=== PATIENT | male | born 1965 | race Caucasian/White ===

== ENCOUNTER 2019-09-27 08:36 | Emergency (ER) | payer OTHER ==
[~2019-09-27] VITALS: Ht 193 cm; Wt 110.2 kg
--- OUTSIDE RECORDS SUMMARY | ~2019-09-27 | XMS | Encounter Summary ---
Demographics + + + | Address | [address] | | | [place] [address] | + + + | Home Phone | | + + + | Preferred Language | Unknown | + + + | Marital Status | Single | + + + | Muslim Affiliation | Unknown | + + + | Race | White | + + + | Ethnic Group | Not or | + + + Author + + + | Author | [facility] | + + + | Organization | [facility] | + + + | Address | Unknown | + + + | Phone | Unavailable | + + + Support + + + + + | Name | Relationship | Address | Phone | + + + + + | Dee Price | ECON | [place] | | + + + + + Care Team Providers + +------+ + | Care Seismograph Operator Name | Role | Phone | + +------+ + PCP | Unavailable | + +------+ + Encounter Details +--------+ + + + + | Date | Type | Department | Care Team | Description | +--------+ + + + + | 04/21/ | Office | UNKNOWN DEPARTMENT | Note, Outpatient | Progress Note | | 1994 | Visit-Trans | [address] [facility] | Clinic | | | | pravin | [address] | | | | | | [place], [place] | | | | | | [address] | | | +--------+ + + + + Social History + +-------+ +--------+------+ | Tobacco Use | Types | Packs/Day | Years | Date | | | | | Used | | + +-------+ +--------+------+ | Never Assessed | | | | | + +-------+ +--------+------+ + + + | Sex Assigned at | Date Recorded | | | | + + + | Not on file | | + + + + + + + | Job Start Date | Occupation | Industry | + + + + | Not on file | Not on file | Not on file | + + + + + + + + | Travel History | Travel Start | Travel End | + + + + + + | No recent travel history available. | + + documented as of this encounter Progress Notes Interface, Pest Control Applicator In - 03/17/2007 3:10 AM PDT CLINIC DATE: 04/21/95 UROLOGY - CYSTOSCOPY CLINIC Mr. Patrick is a 29 year old man who presents for evaluation of gross hematuria. His IVP showed medullary sponge kidneys, but no current stones, no obstruction, or evidence of tumor, with small post void residual. He has had no urinary tract infections and currently his urine is without white or red cells, and is not heme positive on dipstick. On cystoscopy today his anterior urethra is within normal limits. Prostatic urethra is 2 cm in length and nonobstructive. The bladder neck is normal. Ureteral orifices are normal in position and configuration, and have clear efflux bilaterally. The bladder is without tumors, stones, or diverticula. Bladder wash was sent. ASSESSMENT: Gross hematuria. No obvious etiology. Possibly secondary to medullary sponge kidneys. PLAN: Follow up bladder wash. The patient is to return for evaluation, p.r.n. return of gross hematuria. Marlen Obrien M.D. Resident, Urology [facility] Chief, Urologic Oncology Swing Driver, Surgery CAF:aly documented in this encounter Plan of Treatment Not on filedocumented as of this encounter Visit Diagnoses Not on filedocumented in this encounter"
--- OUTSIDE RECORDS SUMMARY | ~2019-09-27 | XMS ---
Demographics + + + | Address | [address] | | | [address] | | | [place] [address] | + + + | Preferred Language | Unknown | + + + | Marital Status | Unknown | + + + | Mandaen Affiliation | Unknown | + + + | Race | Unknown | + + + | Ethnic Group | Unknown | + + + Author + + + | Author | [facility] | + + + | Organization | [facility] | + + + | Address | [address] | | | [place] [address] | + + + | Phone | | + + + Care Team Providers + + + + | Care Outpatient Physical Therapist Name | Role | Phone | + + + + Unavailable | Unavailable | + + + + PROBLEMS +---------+ + + +--------+ + + | Type | Condition | ICD9-CM | [id number] | Onset | Condition | SNOMED | | | | Code | Code | Dates | Status | Code | +---------+ + + +--------+ + + | Problem | Hyperglyce | 790.6 | | | Active | [id number] | | | johan NOS | | | | | | +---------+ + + +--------+ + + | Problem | Nausea | 787.01 | | | Active | [id number] | | | with | | | | | | | | vomiting | | | | | | +---------+ + + +--------+ + + | Problem | Fatigue | 780.79 | | | Active | 29395244 | +---------+ + + +--------+ + + | Problem | Diabetes | | E11.65 | | Active | [id number] | | | mellitus | | | | | | | | type 2, | | | | | | | | uncontroll | | | | | | | | ed | | | | | | +---------+ + + +--------+ + + | Problem | Abscess | | L02.91 | | Active | 721195913 | +---------+ + + +--------+ + + | Problem | Blurred | 368.8 | | | Active | 965880696 | | | vision NOS | | | | | | +---------+ + + +--------+ + + | Problem | Diabetes | 250.00 | | | Active | 15679050 | | | mellitus | | | | | | | | type II | | | | | | +---------+ + + +--------+ + + | Problem | Diabetes | | E11.65 | | Active | 472535119 | | | type 2, | | | | | | | | uncontroll | | | | | | | | ed | | | | | | +---------+ + + +--------+ + + | Problem | DMII WO | 250.02 | | | Active | [id number] | | | CMP | | | | | | | | UNCNTRLD | | | | | | +---------+ + + +--------+ + + ALLERGIES + + + + +---------+ | Substance | Reaction | Event Type | Date | Status | + + + + +---------+ | N.K.D.A. | Unknown | Non Drug | Jun, | Unknown | | | | Allergy | | | + + + + +---------+ SOCIAL HISTORY No smoking Hx information available PLAN OF CARE + +---------+ | Activity | Details | + +---------+ +---+ | | +---+ + + + | Follow Up | 2 - 3 Days Reason:null | + + + VITAL SIGNS + + + + | Height | 75 in | 2017-07-05 | + + + + | Weight | 257 lbs | 2017-07-05 | + + + + | BMI | 32.12 kg/m2 | 2017-07-05 | + + + + | Heart Rate | 80 /min | 2017-07-05 | + + + + | Blood pressure systolic | 124 mm Hg | 2017-07-05 | + + + + | Blood pressure diastolic | 84 mm Hg | 2017-07-05 | + + + + MEDICATIONS + + + + + + + +--------+ | Medicati | Instruct | Dosage | Frequenc | Start | End Date | Duration | Status | | on | ions | | y | Date | | | | + + + + + + + +--------+ | Vitamin | | | | | | | Active | | D | | | | | | | | + + + + + + + +--------+ | Multivit | | | | | | | Active | | rome | | | | | | | | + + + + + + + +--------+ | Vitamin | | | | | | | Active | | A | | | | | | | | + + + + + + + +--------+ | Contour | NA once | as | 24h | 08 Jun, | 7 Sep, | 30 | Active | | Next | daily | directed | | 2016 | 2016 | day(s) | | | Test | | | | | | | | | Strips | | | | | | | | | na | | | | | | | | + + + + + + + +--------+ | Insulin | | as | 24h | 08 Jun, | | 30 | Active | | Syringe | | directed | | 2016 | | day(s) | | | 30G X | | | | | | | | | 16" 1 | | | | | | | | | ML | | | | | | | | + + + + + + + +--------+ | Lantus | Subcutan | as | | Jun, | | 30 | Active | | 100 | eous qd | directed | | 2016 | | day(s) | | | UNIT/ML | in the | | | | | | | | | afternoo | | | | | | | | | n | | | | | | | + + + + + + + +--------+ | Hydrocod | | | | | | | Active | | one-Acet | | | | | | | | | aminophe | | | | | | | | | n | | | | | | | | + + + + + + + +--------+ | Tylenol | Orally | 2 | 6h | | | | Active | | 325 MG | every 6 | tablets | | | | | | | | hrs | as | | | | | | | | | needed | | | | | | + + + + + + + +--------+ RESULTS No Results PROCEDURES + + + + + | Procedure | Date Ordered | Related Diagnosis | Body Site | + + + + + | Est Level IV | Jul 05, 2017 | | | | Extended | | | | + + + + + IMMUNIZATIONS No Known Immunizations
--- OUTSIDE RECORDS SUMMARY | ~2019-09-27 | XMS ---
Demographics + + + | Address | [address] | | | [address] | | | [place] [address] | + + + | Preferred Language | Unknown | + + + | Marital Status | Unknown | + + + | Yazidism Affiliation | Unknown | + + + | Race | Unknown | + + + | Ethnic Group | Unknown | + + + Author + + + | Author | [facility] | + + + | Organization | [facility] | + + + | Address | [address] | | | [place] [address] | + + + | Phone | | + + + Care Team Providers + + + + | Care Rubber Worker Name | Role | Phone | + + + + Unavailable | Unavailable | + + + + PROBLEMS +---------+ + + +--------+ + + | Type | Condition | ICD9-CM | [id number] | Onset | Condition | SNOMED | | | | Code | Code | Dates | Status | Code | +---------+ + + +--------+ + + | Problem | Hyperglyce | 790.6 | | | Active | [id number] | | | johan NOS | | | | | | +---------+ + + +--------+ + + | Problem | Nausea | 787.01 | | | Active | 43114239 | | | with | | | | | | | | vomiting | | | | | | +---------+ + + +--------+ + + | Problem | Fatigue | 780.79 | | | Active | 31365171 | +---------+ + + +--------+ + + | Problem | Diabetes | | E11.65 | | Active | 81791705 | | | mellitus | | | | | | | | type 2, | | | | | | | | uncontroll | | | | | | | | ed | | | | | | +---------+ + + +--------+ + + | Problem | Abscess | | L02.91 | | Active | 812173407 | +---------+ + + +--------+ + + | Problem | Blurred | 368.8 | | | Active | 916715457 | | | vision NOS | | | | | | +---------+ + + +--------+ + + | Problem | Diabetes | 250.00 | | | Active | 78405717 | | | mellitus | | | | | | | | type II | | | | | | +---------+ + + +--------+ + + | Problem | Diabetes | | E11.65 | | Active | 549550725 | | | type 2, | | | | | | | | uncontroll | | | | | | | | ed | | | | | | +---------+ + + +--------+ + + | Problem | DMII WO | 250.02 | | | Active | [id number] | | | CMP | | | | | | | | UNCNTRLD | | | | | | +---------+ + + +--------+ + + ALLERGIES Unknown Allergies SOCIAL HISTORY No smoking Hx information available PLAN OF CARE VITAL SIGNS MEDICATIONS Unknown Medications RESULTS No Results PROCEDURES No Known procedures IMMUNIZATIONS No Known Immunizations"
--- OUTSIDE RECORDS SUMMARY | ~2019-09-27 | XMS | Encounter Summary ---
Demographics + + + | Address | [address] | | | [place] [address] | + + + | Home Phone | | + + + | Preferred Language | Unknown | + + + | Marital Status | Single | + + + | Islam Affiliation | Unknown | + + + | Race | White | + + + | Ethnic Group | Not or | + + + Author + + + | Author | [facility] | + + + | Organization | [facility] | + + + | Address [...] Team Providers + +------+ + | Care Director Of Front Office Name | Role | Phone | + +------+ + PCP | Unavailable | + +------+ + Encounter Details +--------+ + + + + | Date | Type | Department | Care Team | Description | +--------+ + + + + | 04/22/ | Results | LAB CORE [address] | Other, Faculty | | | 1994 | Only | [address] | [phone] | | | | | [place] | | | | | | [address] | | | | | | [phone] | | | +--------+ + + + [...] + + documented as of this encounter Plan of Treatment Not on filedocumented as of this encounter Procedures + +--------+ + + + | Procedure Name | Priori | Date/Time | Associated Diagnosis | Comments | | | ty | | | | + +--------+ + + + | ARCHIVE CYTOLOGY | Routin | 04/22/1995 | | Results for this | | | e | | | procedure are in the | | | | | | results section. | + +--------+ + + + documented in this encounter Results ARCHIVE CYTOLOGY (04/22/1995) + + + + + + | Component | Value | Ref Range | Performed | Pathologist | | | | | At | Signature | + + + + + + | ARCHIVE | SOURCE OF SPECIMEN: SEE | | [facility] | | | CYTOLOGY | RESULTS | | DEPARTMENT | | | | Preliminary | | OF | | | | History:NONGYNECOLOGIC | | PATHOLOGY | | | | CYTOLOGY Body | | | | | | Site: BLADDER | | | | | | Specimen Type: BLADDER | | | | | | WASHING | | | | | | Reason for Procedure: | | | | | | Rule out organisms | | | | | | Rule out inflammatory | | | | | | changes Rule out | | | | | | malignancy | | | | | | xx Rule out | | | | | | metastatic disease | | | | | | Routine Follow-up | | | | | | Not given | | | | | | FINAL CYTOLOGY | | | | | | INTERPRETATION | | | | | | SCANT CELLULARITYFEW | | | | | | ATYPICAL UROTHELIAL | | | | | | CELLS-FAVOR REACTIVE | | | | | | CHANGES | | | | | | Case screened by Bibiana | | | | | | Katt LindsayCase reviewed | | | | | | by Leticia Ugalde M.D. | | | | | | My electronic | | | | | | signature indicates that | | | | | | I have personally | | | | | | reviewed alldiagnostic | | | | | | slides, the gross and/or | | | | | | microscopic portion of | | | | | | thisreport and | | | | | | formulated the final | | | | | | diagnosis. | | | | + + + + + + + + | Specimen | + + | Other | + + + + + + + | Performing | Address | City/State/Zipcode | Phone Number | | Organization | | | | + + + + + | [facility] | [address] | [place] [address] | | | PATHOLOGY | [address] | | | + + + + + documented in this encounter Visit Diagnoses Not on filedocumented in this encounter"
--- OUTSIDE RECORDS SUMMARY | ~2019-09-27 | XMS | Encounter Summary ---
Demographics + + + | Address | [address] | | | [place] [address] | + + + | Home Phone | | + + + | Preferred Language | Unknown | + + + | Marital Status | Single | + + + | Orthodoxy Affiliation | Unknown | + + + | Race | White | + + + | Ethnic Group | Not or | + + + Author + + + | Author | [facility] | + + + | Organization | [facility] | + + + | Address [...] Team Providers + +------+ + | Care Dry Chain Worker Name | Role | Phone | [...] | Only | [address] | [phone] | | | | | [place] | | | | | | [address] | | | | | | [phone] | | | +--------+ + + + [...] | + + + + + | [facility] | [address] | [place] [address] | | | PATHOLOGY | [address] | | | + + + + + documented in this encounter Visit Diagnoses Not on filedocumented in this encounter"
--- OUTSIDE RECORDS SUMMARY | ~2019-09-27 | XMS | Encounter Summary ---
Demographics + + + | Address | [address] | | | [place] [address] | + + + | Home Phone | | + + + | Preferred Language | Unknown | + + + | Marital Status | Single | + + + | Temple Affiliation | Unknown | + + + | Race | White | + + + | Ethnic Group | Not or | + + + Author + + + | Author | [facility] | + + + | Organization | [facility] | + + + | Address [...] Team Providers + +------+ + | Care Rim Roller Operator Name | Role | Phone | + +------+ + PCP | Unavailable | + +------+ + Encounter Details +--------+ + + + + | Date | Type | Department | Care Team | Description | +--------+ + + + + | 04/14/ | Office | UNKNOWN DEPARTMENT | Note, Outpatient | Progress Note | | 1994 | Visit-Trans | [address] [facility] | Clinic | | | | pravin | [address] | | | | | | [place], [place] | | | | | | [address] | | | +--------+ + + + [...] as of this encounter Progress Notes Interface, Quiller Tender In - 03/17/2007 3:10 AM PDT CLINIC DATE: 04/14/95Tuesday [facility] UROLOGY CLINIC: SUBJECTIVE: Mr. Patrick is a 29-year-old white male who presents with complaints of one episode of passing a blood clot when urinating. This occurred approximately one month ago. The patient also reports periodic flank pain which is bilateral and has occurred two to three times a week since this blood clot passed. He occasionally notes some pain in his penis. However, this is not persistent dysuria. PAST MEDICAL HISTORY: He has no history of urinary tract infections, documented stones, or sexually-transmitted diseases. He has had no previous surgery on his urinary tract. He currently also is complaining of some difficulty with sexual functioning in that he is unable to achieve orgasm and occasionally has an ejaculation. His medical history is otherwise noncontributory. He is on no medications. He has had no surgeries. Other than pneumonia as a child, he has been healthy. He had an abscessed tooth in 1991 which resolved uneventfully and a clavicle fracture in 1981. PHYSICAL EXAMINATION: He is a healthy appearing man in no distress. ABDOMEN: Soft, flat, and nontender. He has no organomegaly or masses. There is no tenderness over palpation of his groin or kidneys bilaterally. He has minimal left flank tenderness on deep palpation through his back. GENITALIA: Normal circumcised phallus and no evidence of meatal stenosis. His testes are normal to palpation bilaterally. There is no evidence of epididymal masses. However, there is some fullness bilaterally. RECTAL: Modest size prostate. No masses, no tenderness, or fluctuance. URINALYSIS: Entirely negative. No blood or leukocyte esterase on dip stick. Microscopic examination reveals 0 to 2 white cells per high-power field, no red cells, no bacteria, and no epithelial cells. ASSESSMENT: Gross hematuria one episode now resolved but with persistent flank pain. Need to rule out stone or tumor. Currently, no evidence of infection. PLAN: Intravenous pyelogram and chemistry 7 today. Return to clinic after intravenous pyelogram for flexible cystoscopy next available appointment. Marlen Obrien M.D. Noman Dalton M.D. Resident, Urology Professor, Surgery/Urology CF:rupali documented in this encounter Plan of Treatment Not on filedocumented as of this encounter Visit Diagnoses Not on filedocumented in this encounter"
--- OUTSIDE RECORDS SUMMARY | ~2019-09-27 | XMS | Encounter Summary ---
Demographics + + + | Address | [address] | | | [place] [address] | + + + | Home Phone | | + + + | Preferred Language | Unknown | + + + | Marital Status | Single | + + + | Congregation Affiliation | Unknown | + + + | Race | White | + + + | Ethnic Group | Not or | + + + Author + + + | Author | [facility] | + + + | Organization | [facility] | + + + | Address | Unknown | + + + | Phone | Unavailable | + + + Support + + + + + | Name | Relationship | Address | Phone | + + + + + | Dee Price | ECON | [place] | | + + + + + Care Team Providers + +------+ + | Care Clinical Trials Manager Name | Role | Phone | + +------+ + PCP | Unavailable | + +------+ + Encounter Details +--------+ + + + + | Date | Type | Department | Care Team | Description | +--------+ + + + + | 04/14/ | Results | Registration [id number] | | | | 1994 | Only | [address] | | | | | [address] Mailcode: [address] | | | | | | [place], [place] | | | | | | [address] | | | | | | [phone] | | | +--------+ + + + [...] | + +--------+ + + + | URINALYSIS TESTS | Routin | 04/21/1995 | | Results for this | | | e | 4:34 PM | | procedure are in the | | | | PDT | | results section. | + +--------+ + + + | CHEMISTRY TESTS 4 | Routin | 04/14/1995 | | Results for this | | | e | 10:23 AM | | procedure are in the | | | | PDT | | results section. | + +--------+ + + + documented in this encounter Results URINALYSIS TESTS (04/21/1995 4:34 PM PDT) + + + + + + | Component | Value | Ref Range | Performed | Pathologist | | | | | At | Signature | + + + + + + | TIARRA GUY | ERRONEOUS REQUEST | | | | | ONLY - | | | | | | HEADER | | | | | + + + + + + + + | Specimen | + + | | + + + + + + + | Performing | Address | City/State/Zipcode | Phone Number | | Organization | | | | + + + + + | [facility] | [address] | [place] [address] | | | PATHOLOGY | [address] | | | + + + + + CHEMISTRY TESTS 4 (04/14/1995 10:23 AM PDT) + + + + + + | Component | Value | Ref Range | Performed | Pathologist | | | | | At | Signature | + + + + + + | SODIUM, | 139. | mmol/l | | | | PLASMA | | | | | | (LAB) | | | | | + + + + + + | POTASSIUM, | 3.8 | mmol/l | | | | PLASMA | | | | | | (LAB) | | | | | + + + + + + | CHLORIDE, | 103. | mmol/l | | | | PLASMA | | | | | | (LAB) | | | | | + + + + + + | TOTAL CO2, | 28. | mmol/l | | | | PLASMA | | | | | | (LAB) | | | | | + + + + + + | BUN, PLASMA | 20. | mg/dL | | | | (LAB) | | | | | + + + + + + | CREATININE | 1.1 | mg/dL | | | | PLASMA | | | | | | (LAB) | | | | | + + + + + + | GLUCOSE, | 105. | mg/dL | | | | PLASMA | | | | | | (LAB) | | | | | + + + + + + + + | Specimen | + + | | + + + + + + + | Performing | Address | City/State/Zipcode | Phone Number | | Organization | | | | + + + + + | [facility] | [address] | [place] [address] | | | PATHOLOGY | [address] | | | + + + + + documented in this encounter Visit Diagnoses Not on filedocumented in this encounter"
--- OUTSIDE RECORDS SUMMARY | ~2019-09-27 | XMS | Encounter Summary ---
Demographics + + + | Address | [address] | | | [place] [address] | + + + | Home Phone | | + + + | Preferred Language | Unknown | + + + | Marital Status | Single | + + + | Pentecostal Affiliation | Unknown | + + + | Race | White | + + + | Ethnic Group | Not or | + + + Author + + + | Author | [facility] | + + + | Organization | [facility] | + + + | Address [...] Team Providers + +------+ + | Care Silo Filler Name | Role | Phone | + [...] [address] | | | | | | [place], [place] | | | | | | [address] | | | | | | [phone] | | | +--------+ + + + [...] | + + + + + | [facility] | [address] | [place] [address] | | | PATHOLOGY | [address] [...] | + + + + + | [facility] | [address] | [place] [address] | | | PATHOLOGY | [address] | | | + + + + + documented in this encounter Visit Diagnoses Not on filedocumented in this encounter"
--- OUTSIDE RECORDS SUMMARY | ~2019-09-27 | XMS ---
Demographics + + + | Address | [address] | | | [address] | | | [place] [address] | + + + | Preferred Language | Unknown | + + + | Marital Status | Unknown | + + + | Taoism Affiliation | Unknown | + + + | Race | Unknown | + + + | Ethnic Group | Unknown | + + + Author + + + | Author | [facility] | + + + | Organization | [facility] | + + + | Address | [address] | | | [place] [address] | + + + | Phone | | + + + Care Team Providers + + + + | Care Assistant Manager Name | Role | Phone | + + + + Unavailable | Unavailable | + + + + PROBLEMS +---------+ + + +--------+ + + | Type | Condition | ICD9-CM | [id number] | Onset | Condition | SNOMED | | | | Code | Code | Dates | Status | Code | +---------+ + + +--------+ + + | Problem | Hyperglyce | 790.6 | | | Active | [id number] | | | johan NOS | | | | | | +---------+ + + +--------+ + + | Problem | Nausea | 787.01 | | | Active | 58236294 | | | with | | | | | | | | vomiting | | | | | | +---------+ + + +--------+ + + | Problem | Fatigue | 780.79 | | | Active | 36982029 | +---------+ + + +--------+ + + | Problem | Diabetes | | E11.65 | | Active | 75346431 | | | mellitus | | | | | | | | type 2, | | | | | | | | uncontroll | | | | | | | | ed | | | | | | +---------+ + + +--------+ + + | Problem | Abscess | | L02.91 | | Active | 988172083 | +---------+ + + +--------+ + + | Problem | Blurred | 368.8 | | | Active | 488545001 | | | vision NOS | | | | | | +---------+ + + +--------+ + + | Problem | Diabetes | 250.00 | | | Active | 08892872 | | | mellitus | | | | | | | | type II | | | | | | +---------+ + + +--------+ + + | Problem | Diabetes | | E11.65 | | Active | 206306317 | | | type 2, | | | | | | | | uncontroll | | | | | | | | ed | | | | | | +---------+ + + +--------+ + + | Problem | DMII WO | 250.02 | | | Active | [id number] | | | CMP | | | [...] Follow Up | 2 - 3 Days for wound check Reason:null | + + + | Pending Test | Glucose, Finger Stick (IH) | + + + VITAL SIGNS + + + + | Height | 75 in | 2017-07-03 | + + + + | Weight | 257.4 lbs | 2017-07-03 | + + + + | BMI | 32.17 kg/m2 | 2017-07-03 | + + + + | Temperature | 98.5 degrees Fahrenheit | 2017-07-03 | + + + + | Heart Rate | 87 /min | 2017-07-03 | + + + + | Blood pressure systolic | 137 mm Hg | 2017-07-03 | + + + + | Blood pressure diastolic | 87 mm Hg | 2017-07-03 | + + + + MEDICATIONS + [...] + + + + + +--------+ | Bactrim | Orally | 1 tablet | 12h | May, | 5 Jun, | 10 | Active | | DS | Twice a | | | 2017 | 2017 | day(s) | | | 800-160 | day | | | | | | | | MG | | | | | | | | + + + + + + + +--------+ | Advil | | | | | | | Active | + + + + + + [...] | + + + + + | REAGENT STRIP/BLOOD | Jul 03, 2017 | | | | GLUCOSE | | | | + + + + + | Est Level IV | Jul 03, 2017 | | | | Extended | | | | + + + + + IMMUNIZATIONS No Known Immunizations"
--- OUTSIDE RECORDS SUMMARY | ~2019-09-27 | XMS | Encounter Summary ---
Demographics + + + | Address | [address] | | | [place] [address] | + + + | Home Phone | | + + + | Preferred Language | Unknown | + + + | Marital Status | Single | + + + | Hoahaoism Affiliation | Unknown | + + + | Race | White | + + + | Ethnic Group | Not or | + + + Author + + + | Author | [facility] | + + + | Organization | [facility] | + + + | Address | Unknown | + + + | Phone | Unavailable | + + + Support + + + + + | Name | Relationship | Address | Phone | + + + + + | Dee Price | ECON | [place] | | + + + + + Care Team Providers + +------+ + | Care Hair Spring Cutter Name | Role | Phone | + +------+ + PCP | Unavailable | + +------+ + Encounter Details +--------+ + + + + | Date | Type | Department | Care Team | Description | +--------+ + + + + | 04/21/ | Results | [facility]rology [facility]idents | Noman Dalton MD | | | 1994 | Only | [address] | [address] | | | | | Fatou Zheng Mailcode: | [place], [place] | | | | | [address] | [address] | | | | | [address] | [phone] | | | | | [place], [place] | | | | | | [address] | | | | | | [phone] | | | +--------+ + + + [...] | + +--------+ + + + | IVP, WITH TOMOGRAPHY | Routin | 04/21/1995 | | Results for this | | | e | 11:35 AM | | procedure are in the | | | | PDT | | results section. | + +--------+ + + + documented in this encounter Results IVP, WITH TOMOGRAPHY (04/21/1995 11:35 AM PDT) + + + + + + | Component | Value | Ref Range | Performed | Pathologist | | | | | At | Signature | + + + + + + | IVP, WITH | Radiologist 1: | | | | | TOMOGRAPHY | CARRIE RICHARD, | | | | | | MEve-Radiologist 2: | | | | | | RENÉ HERRERA, | | | | | | MKATHLEEN MALONEY | | | | | | | | | | | | | | | | | | 12-20-24 IVP | | | | | | TOMOGRAPHY: 04/21/95, | | | | | | 1135 HOURS DICTATED: | | | | | | 04/21/95 CLINICAL | | | | | | HISTORY: The patient | | | | | | reports history of gross | | | | | | hematuria onemonth | | | | | | prior to this | | | | | | examination with | | | | | | associated bilateral | | | | | | flank andtesticular | | | | | | pain. The patient is | | | | | | asymptomatic at this | | | | | | time. PROCEDURE: A PAR | | | | | | conference was held | | | | | | with the patient. A | | | | | | 100 cc ofIsovue was | | | | | | infused without | | | | | | complication. Serial | | | | | | tomography and plainfilm | | | | | | images were obtained. | | | | | | Additional | | | | | | fluoroscopic images | | | | | | performed. FINDINGS: | | | | | | Garment Examiner films: The | | | | | | hepatic, renal and psoas | | | | | | shadows | | | | | | areunremarkable. The | | | | | | bowel gas pattern is | | | | | | nonspecific. No | | | | | | osseousabnormalities are | | | | | | identified. No | | | | | | intra-abdominal | | | | | | calcifications | | | | | | areevident. The kidneys | | | | | | are normal in size and | | | | | | configuration. The | | | | | | pyelograms | | | | | | andnephrograms appear | | | | | | symmetrically. All of | | | | | | the distal tubules | | | | | | appearmoderately dilated | | | | | | bilaterally. No | | | | | | compression was used. | | | | | | Noassociated filling | | | | | | defects delineated. The | | | | | | ureters are gracile | | | | | | butotherwise | | | | | | unremarkable. The | | | | | | bladder is normal in | | | | | | configuration. A small | | | | | | postvoid residual | | | | | | isnoted. IMPRESSION: 1. | | | | | | Dilatation of the | | | | | | distal tubules | | | | | | bilaterally as | | | | | | described. 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 No | | | | | | associatedfilling | | | | | | defects identified. | | | | | | Further evaluation with | | | | | | ultrasound ismay be | | | | | | helpful to confirm MSK. | | | | | | END OF IMPRESSION: | | | | + + + + + + + + | Specimen | + + | | + + + +---------+ + + | Performing | Address | City/State/Zipcode | Phone Number | | Organization | | | | + +---------+ + + | [place] [facility] | | | | [facility] | | | | + +---------+ + + documented in this encounter Visit Diagnoses Not on filedocumented in this encounter"
--- OUTSIDE RECORDS SUMMARY | ~2019-09-27 | XMS | Encounter Summary ---
Demographics + + + | Address | [address] | | | [place] [address] | + + + | Home Phone | | + + + | Preferred Language | Unknown | + + + | Marital Status | Single | + + + | Advent Affiliation | Unknown | + + + | Race | White | + + + | Ethnic Group | Not or | + + + Author + + + | Author | [facility] | + + + | Organization | [facility] | + + + | [...] Team Providers + +------+ + | Care Completions Engineer Name | Role | Phone | + +------+ + PCP | Unavailable | + +------+ + Encounter Details +--------+ + + + + | Date | Type | Department | Care Team | Description | +--------+ + + + + | 04/14/ | Office | UNKNOWN DEPARTMENT | Note, Outpatient | Progress Note | | 1994 | Visit-Trans | [address] [facility] | Clinic | | | | pravin | [address] | | | | | | [place], [place] | | | | | | [address] | | | +--------+ + + + [...] as of this encounter Progress Notes Interface, Administrative Professional In - 03/17/2007 3:10 AM PDT CLINIC DATE: 04/14/95[facility]: SUBJECTIVE: Mr. Patrick is a [...]
--- OUTSIDE RECORDS SUMMARY | ~2019-09-27 | XMS ---
Demographics + + + | Address | [address] | | | [address] | | | [place] [address] | + + + | Preferred Language | Unknown | + + + | Marital Status | Unknown | + + + | Christian Affiliation | Unknown | + + + | Race | Unknown | + + + | Ethnic Group | Unknown | + + + Author + + + | Author | [facility] | + + + | Organization | [facility] | + + + | Address | [address] | | | [place] [address] | + + + | Phone | | + + + Care Team Providers + + + + | Care Digital Account Supervisor Name | Role | Phone | + + + + Unavailable | Unavailable | + + + + PROBLEMS +---------+ + + +--------+ + + | Type | Condition | ICD9-CM | [id number] | Onset | Condition | SNOMED | | | | Code | Code | Dates | Status | Code | +---------+ + + +--------+ + + | Problem | Hyperglyce | 790.6 | | | Active | [id number] | | | johan NOS | | | | | | +---------+ + + +--------+ + + | Problem | Nausea | 787.01 | | | Active | 50397714 | | | with | | | | | | | | vomiting | | | | | | +---------+ + + +--------+ + + | Problem | Fatigue | 780.79 | | | Active | 64431857 | +---------+ + + +--------+ + + | Problem | Diabetes | | E11.65 | | Active | 88877296 | | | mellitus | | | | | | | | type 2, | | | | | | | | uncontroll | | | | | | | | ed | | | | | | +---------+ + + +--------+ + + | Problem | Abscess | | L02.91 | | Active | 307411476 | +---------+ + + +--------+ + + | Problem | Blurred | 368.8 | | | Active | 102543637 | | | vision NOS | | | | | | +---------+ + + +--------+ + + | Problem | Diabetes | 250.00 | | | Active | 81890150 | | | mellitus | | | | | | | | type II | | | | | | +---------+ + + +--------+ + + | Problem | Diabetes | | E11.65 | | Active | 794563699 | | | type 2, | | | | | | | | uncontroll | | | | | | | | ed | | | | | | +---------+ + + +--------+ + + | Problem | DMII WO | 250.02 | | | Active | [id number] | | | CMP | | | | | | | | UNCNTRLD | | | | | | +---------+ + + +--------+ + + ALLERGIES Unknown Allergies SOCIAL HISTORY No smoking Hx information available PLAN OF CARE VITAL SIGNS MEDICATIONS Unknown Medications RESULTS No Results PROCEDURES No Known procedures IMMUNIZATIONS No Known Immunizations"
--- OUTSIDE RECORDS SUMMARY | ~2019-09-27 | XMS | Clinical Summary ---
Demographics + + + | Address | [address] | | | [place] [address] | + + + | Home Phone | | + + + | Preferred Language | Unknown | + + + | Marital Status | Single | + + + | Druze Affiliation | Unknown | + + + | Race | White | + + + | Ethnic Group | Not or | + + + Author + + + | Organization | Unknown | + + + | Address | Unknown | + + + | Phone | Unavailable | + + + Support + + + + + | Name | Relationship | Address | Phone | + + + + + | Dee Price | ECON | [place] | | + + + + + Care Team Providers + +------+ + | Care Solar Tech Name | Role | Phone | + +------+ + PCP | Unavailable | + +------+ + Source Comments STANLEY is fully live on both [facility] and [facility] Allergies Not on File Medications Not on file Active Problems Not on file Social History + +-------+ +--------+------+ | Tobacco [...] recent travel history available. | + + Last Filed Vital Signs Not on file Plan of Treatment + + + + + | Health Maintenance | Due Date | Last Done | Comments | + + + + + | Influenza (Flu) | | | | | vaccination (#1) | 9 | | | + + + + + | Pneumococcal | Aged Out | | No longer eligible | | vaccination | | | based on patient's | | | | | age to complete this | | | | | topic | + + + + + Results Not on filefrom Last 3 Months"
--- OUTSIDE RECORDS SUMMARY | ~2019-09-27 | XMS ---
Demographics + + + | Address | [address] | | | [address] | | | [place] [address] | + + + | Preferred Language | Unknown | + + + | Marital Status | Unknown | + + + | Anabaptist Affiliation | Unknown | + + + | Race | Unknown | + + + | Ethnic Group | Unknown | + + + Author + + + | Author | [facility] | + + + | Organization | [facility] | + + + | Address | [address] | | | [place] [address] | + + + | Phone | | + + + Care Team Providers + + + + | Care Family Service Worker Name | Role | Phone | + + + + Unavailable | Unavailable | + + + + PROBLEMS +---------+ + + +--------+ + + | Type | Condition | ICD9-CM | [id number] | Onset | Condition | SNOMED | | | | Code | Code | Dates | Status | Code | +---------+ + + +--------+ + + | Problem | Hyperglyce | 790.6 | | | Active | 82161877 | | | johan NOS | | | | | | +---------+ + + +--------+ + + | Problem | Nausea | 787.01 | | | Active | 07177777 | | | with | | | | | | | | vomiting | | | | | | +---------+ + + +--------+ + + | Problem | Fatigue | 780.79 | | | Active | 48945144 | +---------+ + + +--------+ + + | Problem | Diabetes | | E11.65 | | Active | 19943064 | | | mellitus | | | | | | | | type 2, | | | | | | | | uncontroll | | | | | | | | ed | | | | | | +---------+ + + +--------+ + + | Problem | Abscess | | L02.91 | | Active | 579864056 | +---------+ + + +--------+ + + | Problem | Blurred | 368.8 | | | Active | 264493019 | | | vision NOS | | | | | | +---------+ + + +--------+ + + | Problem | Diabetes | 250.00 | | | Active | 91821614 | | | mellitus | | | | | | | | type II | | | | | | +---------+ + + +--------+ + + | Problem | Diabetes | | E11.65 | | Active | 805881121 | | | type 2, | | | | | | | | uncontroll | | | | | | | | ed | | | | | | +---------+ + + +--------+ + + | Problem | DMII WO | 250.02 | | | Active | 636820067 | | | CMP | | | | | | | | UNCNTRLD | | | | | | +---------+ + + +--------+ + + ALLERGIES Unknown Allergies SOCIAL HISTORY No smoking Hx information available PLAN OF CARE VITAL SIGNS MEDICATIONS Unknown Medications RESULTS No Results PROCEDURES No Known procedures IMMUNIZATIONS No Known Immunizations"
--- OUTSIDE RECORDS SUMMARY | ~2019-09-27 | XMS | Encounter Summary ---
Demographics + + + | Address | [address] | | | [place] [address] | + + + | Home Phone | | + + + | Preferred Language | Unknown | + + + | Marital Status | Single | + + + | Moravian Affiliation | Unknown | + + + | Race | White | + + + | Ethnic Group | Not or | + + + Author + + + | Author | [facility] | + + + | Organization | [facility] | + + + | Address [...] Team Providers + +------+ + | Care An/Syq 13 Nav/C2 Operator Name | Role | Phone | + +------+ + PCP | Unavailable | + +------+ + Encounter Details +--------+ + + + + | Date | Type | Department | Care Team | Description | +--------+ + + + + | 04/21/ | Results | Urology Residents | Noman Dalton MD | | | 1994 | Only | [address] | [address] | | | | | [place] Zheng Mailcode: | [place], [place] | | | | | [address] | [address] | | | | | [address] | [phone] | | | | | [place], [place] | | | | | | [address] | | | | | | [phone] | | | +--------+ + + + [...] FINDINGS: | | | | | | Drawing Frame Tender films: The | | | | | [...]
--- OUTSIDE RECORDS SUMMARY | ~2019-09-27 | XMS ---
Demographics + + + | Address | [address] | | | [address] | | | [place] [address] | + + + | Preferred Language | Unknown | + + + | Marital Status | Unknown | + + + | Alevism Affiliation | Unknown | + + + | Race | Unknown | + + + | Ethnic Group | Unknown | + + + Author + + + | Author | [facility] | + + + | Organization | [facility] | + + + | Address | [address] | | | [place] [address] | + + + | Phone | | + + + Care Team Providers + + + + | Care Inspector General Name | Role | Phone | + + + + Unavailable | Unavailable | + + + + PROBLEMS +---------+ + + +--------+ + + | Type | Condition | ICD9-CM | [id number] | Onset | Condition | SNOMED | | | | Code | Code | Dates | Status | Code | +---------+ + + +--------+ + + | Problem | Fatigue | 780.79 | | | Active | 96619246 | +---------+ + + +--------+ + + | Problem | Hyperglyce | 790.6 | | | Active | 99259263 | | | johan NOS | | | | | | +---------+ + + +--------+ + + | Problem | Abscess | | L02.91 | | Active | 984592004 | +---------+ + + +--------+ + + | Problem | Diabetes | | E11.65 | | Active | 858988523 | | | type 2, | | | | | | | | uncontroll | | | | | | | | ed | | | | | | +---------+ + + +--------+ + + | Problem | Diabetes | 250.00 | | | Active | 85815929 | | | mellitus | | | | | | | | type II | | | | | | +---------+ + + +--------+ + + | Problem | Nausea | 787.01 | | | Active | 97935537 | | | with | | | | | | | | vomiting | | | | | | +---------+ + + +--------+ + + | Problem | DMII WO | 250.02 | | | Active | 471641103 | | | CMP | | | | | | | | UNCNTRLD | | | | | | +---------+ + + +--------+ + + | Problem | Blurred | 368.8 | | | Active | [id number] | | | vision NOS | | [...] + | Height | 75 in | 2017-07-01 | + + + + | Weight | 255.9 lbs | 2017-07-01 | + + + + | BMI | 31.98 kg/m2 | 2017-07-01 | + + + + | Temperature | 97.9 degrees Fahrenheit | 2017-07-01 | + + + + | Heart Rate | 92 /min | 2017-07-01 | + + + + | Blood pressure systolic | 128 mm Hg | 2017-07-01 | + + + + | Blood pressure diastolic | 87 mm Hg | 2017-07-01 | + + + + MEDICATIONS + [...] Orally | 1 tablet | 12h | 26 Mario, | 5 Aug, | 10 | Active | | DS [...] + + + + | Est Level II | Jul 01, 2017 | | | | Limited | | | | + + + + + | WOUND(S) CARE | Jul 01, 2017 | | | | NON-SELECTIVE | | | | + + + + + IMMUNIZATIONS No Known Immunizations"
--- OUTSIDE RECORDS SUMMARY | ~2019-09-27 | XMS ---
Demographics + + + | Address | [address] | | | [address] | | | [place] [address] | + + + | Preferred Language | Unknown | + + + | Marital Status | Unknown | + + + | Zoroastrian Affiliation | Unknown | + + + | Race | Unknown | + + + | Ethnic Group | Unknown | + + + Author + + + | Author | [facility] | + + + | Organization | [facility] | + + + | Address | [address] | | | [place] [address] | + + + | Phone | | + + + Care Team Providers + + + + | Care Floor Inspector Name | Role | Phone | + + + + Unavailable | Unavailable | + + + + PROBLEMS +---------+ + + +--------+ + + | Type | Condition | ICD9-CM | [id number] | Onset | Condition | SNOMED | | | | Code | Code | Dates | Status | Code | +---------+ + + +--------+ + + | Problem | Hyperglyce | 790.6 | | | Active | 60229642 | | | johan NOS | | | | | | +---------+ + + +--------+ + + | Problem | Nausea | 787.01 | | | Active | 51631785 | | | with | | | | | | | | vomiting | | | | | | +---------+ + + +--------+ + + | Problem | Fatigue | 780.79 | | | Active | 81597052 | +---------+ + + +--------+ + + | Problem | Diabetes | | E11.65 | | Active | 28831309 | | | mellitus | | | | | | | | type 2, | | | | | | | | uncontroll | | | | | | | | ed | | | | | | +---------+ + + +--------+ + + | Problem | Abscess | | L02.91 | | Active | 903004381 | +---------+ + + +--------+ + + | Problem | Blurred | 368.8 | | | Active | 889073822 | | | vision NOS | | | | | | +---------+ + + +--------+ + + | Problem | Diabetes | 250.00 | | | Active | 88933883 | | | mellitus | | | | | | | | type II | | | | | | +---------+ + + +--------+ + + | Problem | Diabetes | | E11.65 | | Active | 875602085 | | | type 2, | | | | | | | | uncontroll | | | | | | | | ed | | | | | | +---------+ + + +--------+ + + | Problem | DMII WO | 250.02 | | | Active | 487454988 | | | CMP | | | | | | | | UNCNTRLD | | | | | | +---------+ + + +--------+ + + ALLERGIES Unknown Allergies SOCIAL HISTORY No smoking Hx information available PLAN OF CARE VITAL SIGNS MEDICATIONS Unknown Medications RESULTS No Results PROCEDURES No Known procedures IMMUNIZATIONS No Known Immunizations"
--- OUTSIDE RECORDS SUMMARY | ~2019-09-27 | XMS ---
Demographics + + + | Address | [address] | | | [address] | | | [place] [address] | + + + | Preferred Language | Unknown | + + + | Marital Status | Unknown | + + + | Quaker Affiliation | Unknown | + + + | Race | Unknown | + + + | Ethnic Group | Unknown | + + + Author + + + | Author | [facility] | + + + | Organization | [facility] | + + + | Address | [address] | | | [place] [address] | + + + | Phone | Unavailable | + + + Care Team Providers + + + + | Care Lead Pressman Roto [employer]ure Printing Name | Role | Phone | + + + + Unavailable | Unavailable | + + + + PROBLEMS +---------+ + + +--------+ + + | Type | Condition | ICD9-CM | [id number] | Onset | Condition | SNOMED | | | | Code | Code | Dates | Status | Code | +---------+ + + +--------+ + + | Problem | Hyperglyce | 790.6 | | | Active | 54718940 | | | johan NOS | | | | | | +---------+ + + +--------+ + + | Problem | Nausea | 787.01 | | | Active | 25354155 | | | with | | | | | | | | vomiting | | | | | | +---------+ + + +--------+ + + | Problem | Fatigue | 780.79 | | | Active | 60689859 | +---------+ + + +--------+ + + | Problem | Diabetes | | E11.65 | | Active | 80773560 | | | mellitus | | | | | | | | type 2, | | | | | | | | uncontroll | | | | | | | | ed | | | | | | +---------+ + + +--------+ + + | Problem | Abscess | | L02.91 | | Active | 237480570 | +---------+ + + +--------+ + + | Problem | Blurred | 368.8 | | | Active | 629402987 | | | vision NOS | | | | | | +---------+ + + +--------+ + + | Problem | Diabetes | 250.00 | | | Active | 50378115 | | | mellitus | | | | | | | | type II | | | | | | +---------+ + + +--------+ + + | Problem | Diabetes | | E11.65 | | Active | 901621703 | | | type 2, | | | | | | | | uncontroll | | | | | | | | ed | | | | | | +---------+ + + +--------+ + + | Problem | DMII WO | 250.02 | | | Active | 286277788 | | | CMP | | | | | | | | UNCNTRLD | | | | | | +---------+ + + +--------+ + + ALLERGIES Unknown Allergies SOCIAL HISTORY No smoking Hx information available PLAN OF CARE VITAL SIGNS MEDICATIONS Unknown Medications RESULTS No Results PROCEDURES No Known procedures IMMUNIZATIONS No Known Immunizations"
--- OUTSIDE RECORDS SUMMARY | ~2019-09-27 | XMS ---
Demographics + + + | Address | [address] | | | [address] | | | [place] [address] | + + + | Preferred Language | Unknown | + + + | Marital Status | Unknown | + + + | Adventism Affiliation | Unknown | + + + | Race | Unknown | + + + | Ethnic Group | Unknown | + + + Author + + + | Author | [facility] | + + + | Organization | [facility] | + + + | Address | [address] | | | [place] [address] | + + + | Phone | | + + + Care Team Providers + + + + | Care Forder Operator Name | Role | Phone | + + + + Unavailable | Unavailable | + + + + PROBLEMS +---------+ + + +--------+ + + | Type | Condition | ICD9-CM | [id number] | Onset | Condition | SNOMED | | | | Code | Code | Dates | Status | Code | +---------+ + + +--------+ + + | Problem | Hyperglyce | 790.6 | | | Active | 20345480 | | | johan NOS | | | | | | +---------+ + + +--------+ + + | Problem | Nausea | 787.01 | | | Active | 64545448 | | | with | | | | | | | | vomiting | | | | | | +---------+ + + +--------+ + + | Problem | Fatigue | 780.79 | | | Active | 81594516 | +---------+ + + +--------+ + + | Problem | Diabetes | | E11.65 | | Active | 46747552 | | | mellitus | | | | | | | | type 2, | | | | | | | | uncontroll | | | | | | | | ed | | | | | | +---------+ + + +--------+ + + | Problem | Abscess | | L02.91 | | Active | 867427581 | +---------+ + + +--------+ + + | Problem | Blurred | 368.8 | | | Active | 802488477 | | | vision NOS | | | | | | +---------+ + + +--------+ + + | Problem | Diabetes | 250.00 | | | Active | 13255711 | | | mellitus | | | | | | | | type II | | | | | | +---------+ + + +--------+ + + | Problem | Diabetes | | E11.65 | | Active | 359420076 | | | type 2, | | | | | | | | uncontroll | | | | | | | | ed | | | | | | +---------+ + + +--------+ + + | Problem | DMII WO | 250.02 | | | Active | 510439221 | | | CMP | | | | | | | | UNCNTRLD | | | | | | +---------+ + + +--------+ + + ALLERGIES Unknown Allergies SOCIAL HISTORY No smoking Hx information available PLAN OF CARE VITAL SIGNS MEDICATIONS Unknown Medications RESULTS No Results PROCEDURES No Known procedures IMMUNIZATIONS No Known Immunizations"
--- OUTSIDE RECORDS SUMMARY | ~2019-09-27 | XMS | Clinical Summary ---
Demographics + + + | Address | [address] | | | [place] [address] | + + + | Home Phone | | + + + | Preferred Language | Unknown | + + + | Marital Status | Single | + + + | Latter Day Affiliation | Unknown | + + + [...] Team Providers + +------+ + | Care Workplace Rehabilitation Officer Name | Role | Phone | + +------+ + PCP | Unavailable | + +------+ + Source Comments STANLEY is fully live on both [facility] and [facility]Patient.[facility] Allergies Not on File Medications Not on [...]
--- OUTSIDE RECORDS SUMMARY | ~2019-09-27 | XMS | Encounter Summary ---
Demographics + + + | Address | [address] | | | [place] [address] | + + + | Home Phone | | + + + | Preferred Language | Unknown | + + + | Marital Status | Single | + + + | Roman Catholic Affiliation | Unknown | + + + | Race | White | + + + | Ethnic Group | Not or | + + + Author + + + | Author | [facility] | + + + | Organization | [facility] | + + + | Address [...] Team Providers + +------+ + | Care Vegetable Tester Name | Role | Phone | + +------+ + PCP | Unavailable | + +------+ + Encounter Details +--------+ + + + + | Date | Type | Department | Care Team | Description | +--------+ + + + + | 04/21/ | Office | UNKNOWN DEPARTMENT | Note, Outpatient | Progress Note | | 1994 | Visit-Trans | [address] [facility] | Clinic | | | | pravin | [address] | | | | | | [place], [place] | | | | | | [address] | | | +--------+ + + + [...] as of this encounter Progress Notes Interface, Babbitt Spinner In - 03/17/2007 3:10 AM PDT CLINIC [...] Buster Becerra M.D., P.C. Chief, Urologic Oncology Clamp Forklift Operator, Surgery CAF:aly documented in this encounter Plan of Treatment Not on filedocumented as of this encounter Visit Diagnoses Not on filedocumented in this encounter"
== END 2019-09-27 09:48 | disposition home or self-care (01) ==
LOC: ED 08:36
DX: M72.2 Plantar fascial fibromatosis (principal); E11.9 Type 2 diabetes mellitus without complications; I10 Essential (primary) hypertension
CPT/HCPCS: 73630; 99283-25